=== PATIENT | female | born 1970 | race American Indian/Alaskan Native ===

== ENCOUNTER 2017-11-07 08:21 | Outpatient (CLI) | payer OTHER, BC ==
--- NOTE | 2017-11-08 10:19 | Magnetic Resonance Report ---
BILATERAL BREAST MRI WITHOUT AND WITH CONTRAST: 11/07/17 08:21:00 CLINICAL: Right breast nodule identified only by mammography. Stereotactic biopsy was unsuccessful because the lesion could not be satisfactorily targeted. COMPARISON:05/04/17. TECHNIQUE: Axial 1.0-mm T1 without, axial high resolution 2.0-mm T2 and axial 1.0-mm dynamic Vibrant high-resolution postcontrast T1 fat saturation sequences on a 1.5 Hayde magnet. The examination was performed with an 8 channel dedicated [employer] breast coil. Post processing with CAD and subtraction was performed on an [employer] workstation. 15.0 cc of Multihance was injected without incident for the contrast portion of the exam. Consent was obtained prior to the administration of the contrast. FINDINGS: Right: Minimal background parenchymal enhancement. No mass or suspicious enhancement. A benign intraparenchymal lymph node at 6 o'clock approximately 7 cm from the nipple correlates with the mammographic nodule. It measures 7 x 4 x 6 mm and has central fat. No suspicious lymph nodes. Left: Minimal background parenchymal enhancement. No mass. Focal non-Mass enhancement at 12 o'clock 5.5 cm from the nipple measures 4 x 4 by 4 mm. It demonstrates heterogeneous enhancement with mixed kinetics, 121% peak enhancement, 0% type I persistent, 59% type II plateau and 41% type III washout waveforms. No other suspicious enhancement. No suspicious lymph nodes. IMPRESSION: 1. A 7 mm benign intraparenchymal lymph node of the right breast at 6 o'clock 7 cm from the nipple. It correlates with the mammographic density and the right breast is otherwise negative. 2. Probably benign focal non-Mass enhancement of the left breast at 12 o'clock 5.5 cm from the nipple. Recommend followup MRI in six months. RIGHT BI-RADS 2 -- Benign LEFT BI-RADS 3 -- Probably Benign
== END 2017-11-07 08:22 | disposition home or self-care (01) ==
LOC: SPVIMAG 08:21
PROVIDERS: ATTEND Specialist
DX: N60.11 Diffuse cystic mastopathy of right breast (principal); N60.12 Diffuse cystic mastopathy of left breast; Z88.0 Allergy status to penicillin
CPT/HCPCS: A9577; C8908; 77059

== ENCOUNTER 2018-05-16 14:35 | Outpatient (CLI) | payer BC ==
--- NOTE | 2018-05-21 11:21 | Magnetic Resonance Report ---
BILATERAL BREAST MRI WITHOUT AND WITH CONTRAST: 05/16/18 14:35:00 CLINICAL: Followup focal non-mass enhancement of the left breast at 12 o'clock 5.5 cm from the nipple and followup of a right nodule at 6 o'clock. COMPARISON:11/07/17 MRI and 05/06/18 bilateral diagnostic mammogram.. TECHNIQUE: Axial 1.0-mm T1 without, axial high resolution 2.0-mm T2 and axial 1.0-mm dynamic Vibrant high-resolution postcontrast T1 fat saturation sequences on a 1.5 Hayde magnet. The examination was performed with an 8 channel dedicated [place] breast coil. Post processing with CAD and subtraction was performed on an [employer] workstation. 16.0 cc of Multihance was injected without incident for the contrast portion of the exam. Consent was obtained prior to the administration of the contrast. FINDINGS: Right: Minimal background parenchymal enhancement. No mass or suspicious enhancement. A stable 6 mm benign intraparenchymal lymph node at 6 o'clock approximately 7 cm from the nipple. No suspicious right axillary or right internal mammary lymph nodes. Left: Minimal background parenchymal enhancement. No mass or suspicious enhancement. The previously described focal non-Mass enhancement at 12 o'clock is smaller, measures 4.0 x 2.8 x 2.8 mm compared to 4 x 4 x 4 mm and is better described as normal focal parenchymal enhancement on this exam. It has a more benign enhancement pattern with 17% type I persistent, 83% % type II plateau and 0% type III washout. No suspicious left axillary or left internal mammary lymph nodes. IMPRESSION: Negative study with a stable benign intraparenchymal lymph node at 6 o'clock right breast and normal focal enhancement of the left breast at 12 o'clock. Recommend routine mammographic screening. BI-RADS 2 - - Benign
== END 2018-05-16 14:36 | disposition home or self-care (01) ==
LOC: SPVIMAG 14:35
PROVIDERS: ATTEND Surgery
DX: R92.2 Inconclusive mammogram (principal)
CPT/HCPCS: A9577; C8908; 77049

== ENCOUNTER 2020-06-15 08:03 | Outpatient (CLI) | payer BC ==
--- NOTE | 2020-06-15 08:57 | Mammography Report ---
BILATERAL DIGITAL SCREENING MAMMOGRAM WITH CAD HISTORY: Screening mammogram. TECHNIQUE: Routine digital mammographic imaging performed. This examination was interpreted with william masters benefit of Computer-aided Detection analysis. COMPARISON: 06/12/2019, 05/06/2018, 05/04/2017, 04/28/2016. FINDINGS: Breast Density: scattered fibroglandular appearance of the breast tissue. Digital CC and MLO views demonstrate no mammographic evidence of malignancy. Stable right inferior b reast focal asymmetry. Long-term stability would support a benign etiology. IMPRESSION: No mammographic evidence of malignancy. If the clinical examination remains stable, recommend bilate ral mammogram in approximately one year. BIRADS 2: Benign Finding(s). FURTHER INFORMATION: According to the [employer], yearly mammograms are recommend ed starting at age 40 and continuing as long as a woman is in good health. Clinical Breast Exams shou ld be part of a periodic health exam-about every 3 years for women in their 20s and 30s and every yea r for women 40 and over. Breast self exam is an option for women starting in their 20s. Any breast ch ba noted on a breast self exam should be reported promptly to the patient's healthcare provider. Br east MRI is recommended for women with an approximately 20-25% or greater lifetime risk of breast can cer, including women with a strong family history of breast or ovarian cancer and women who have been treated for Hodgkin's disease. A negative Mammography report should not discourage follow up or biopsy of a clinically significant f inding and/or abnormality. Dense breast tissue may obscure small neoplasms. The patient will be entered into a reminder system with a target due date for the next screening mamm ogram. A Signer Name: Johnson Angelo MD Signed: 06/15/2020 8:53 AM Workstation Name: [id number]
== END 2020-06-15 08:04 | disposition home or self-care (01) ==
LOC: SPVWC 08:03
PROVIDERS: ATTEND Surgery
DX: Z12.31 Encounter for screening mammogram for malignant neoplasm of breast (principal); N64.89 Other specified disorders of breast
CPT/HCPCS: 77067